=== PATIENT | male | born 1950 | race Hispanic/Latino ===

== ENCOUNTER → 2023-08-25 | Outpatient (CLI) | payer OTHER ==
[~2023-08-25] MED LIST: IRON18TA PO; LISI20TA24 PO; PANT40TA55 PO; TRAM50TA4 PO
== END | disposition home or self-care (01) ==
LOC: RAH 13:16
PROVIDERS: ATTEND Internal Medicine
DX: I08.1 Rheumatic disorders of both mitral and tricuspid valves (principal); J92.0 Pleural plaque with presence of asbestos
CPT/HCPCS: 93306

== ENCOUNTER → 2023-09-09 | Outpatient (CLI) | payer OTHER | END | disposition home or self-care (01) | LOC: RAH 13:09 | PROVIDERS: ATTEND Internal Medicine | DX: J90 Pleural effusion, not elsewhere classified (principal); J44.9 Chronic obstructive pulmonary disease, unspecified; J98.11 Atelectasis; J84.10 Pulmonary fibrosis, unspecified; K80.20 Calculus of gallbladder without cholecystitis without obstruction; M47.815 Spondylosis without myelopathy or radiculopathy, thoracolumbar region | CPT/HCPCS: 71250 ==

== ENCOUNTER → 2024-02-10 | Outpatient (CLI) | payer OTHER ==
[2024-02-10 15:19] LABS: BASOPHILS # (AUTO) 0.01 K/uL (0.00-0.20); BASOPHILS % (AUTO) 0.1 % (0.0-5.0); EOSINOPHILS # (AUTO) 0.11 K/uL (0.00-0.70); EOSINOPHILS % (AUTO) 1.1 % (0.0-8.0); IMMATURE GRANULOCYTE ABSOLUTE 0.04 K/uL (0-1); LYMPHOCYTES # (AUTO) 3.3 K/uL (1.0-4.8); MEAN CORPUSCULAR HEMOGLOBIN 22.8 pg (27.0-33.0); MEAN CORPUSCULAR VOLUME 81.5 fL (79-99); MONOCYTES # (AUTO) 2.5 K/uL (0.1-1.0); MONOCYTES % (AUTO) 25.1 % (3.0-13.0); NEUTROPHILS # (AUTO) 4.1 K/uL (1.8-7.7); NEUTROPHILS % (AUTO) 40.3 % (40.0-77.0); PLATELET COUNT (AUTO) 181 K/uL (130-400); RED BLOOD CELL COUNT(AUTO) 3.68 MIL/uL (4.50-6.20); RED CELL DISTRIBUTION WIDTH 19.3 % (11.0-15.5); WHITE BLOOD COUNT (AUTO) 10.1 K/uL (4.8-10.8)
[2024-02-10 15:37] LABS: BILIRUBIN,TOTAL 0.4 mg/dL (0.2-1.0); CREATININE 0.9 mg/dL (0.5-1.3); POTASSIUM 4.7 mmol/L (3.5-5.1); TOTAL PROTEIN, SERUM 8.9 g/dL (6.0-8.3)
[2024-02-10 15:47] LABS: % IRON SATURATION 10.3 % (30-44)
[2024-02-10 15:56] LABS: WBC MORPHOLOGY CONSISTENT W/DIFF
== END | disposition home or self-care (01) ==
LOC: LAB 14:36
PROVIDERS: ATTEND Internal Medicine Gastroenterology
DX: K44.9 Diaphragmatic hernia without obstruction or gangrene (principal); D50.9 Iron deficiency anemia, unspecified
CPT/HCPCS: 36415; 80053; 82728; 83540; 83550; 85025

== ENCOUNTER → 2024-02-15 | Outpatient (CLI) | payer OTHER ==
--- NOTE | 2024-02-15 11:35 | HMCIMG ---
UPPER GI TRACT, WO KUB REASON: DIAPHRAGMATIC HERNIA W/O OBSTRUCTION OR GANGRENE. COMPARISON: None TECHNIQUE: Biphasic upper GI series study was performed. Fluoroscopy time is 1.1 minutes. FINDINGS: There is no obstruction to the antegrade passage of barium from mouth through jejunum. A normal esophageal stripping with is seen. There is no evidence of hiatal hernia. Gastroesophageal reflux is seen to level of the mid thoracic esophagus. Stomach is well distended without ulceration or mass lesion. Duodenal bulb and duodenal sweep are unremarkable. IMPRESSION: No obstruction. Gastroesophageal reflux to the level of mid thoracic esophagus.
== END | disposition home or self-care (01) ==
LOC: RAH 09:01
PROVIDERS: ATTEND Internal Medicine Gastroenterology
DX: K21.9 Gastro-esophageal reflux disease without esophagitis (principal); K31.89 Other diseases of stomach and duodenum; K44.9 Diaphragmatic hernia without obstruction or gangrene; R93.3 Abnormal findings on diagnostic imaging of other parts of digestive tract
CPT/HCPCS: 74240

== ENCOUNTER → 2024-02-19 | Outpatient (CLI) | payer OTHER ==
[~2024-02-19] MED LIST changes: +IOHEXOL-350 75 ML VIAL IV ONE
--- NOTE | 2024-02-19 08:58 | HMCIMG ---
CT CHEST W/CONTRAST HISTORY: Diaphragmatic hernia COMPARISON: 09/09/1999 TECHNIQUE: Multiple sequential axial images of the chest were obtained from the thoracic inlet through upper abdomen. Patient was given 75 cc through intravenous route. FINDINGS: There is no evidence of pulmonary nodule or parenchymal disease. Calcified granuloma is seen in the left lower lobe.. Pacemaker is seen entering from the left. COPD changes are seen. No pleural effusion or pericardial effusion is seen. There is no evidence of pneumothorax. There are normal size mediastinal and hilar lymph nodes. The heart is not enlarged. Degenerative changes of the thoracolumbar spine are present. There is no evidence of adrenal nodule. Tiny hiatal hernia is seen. IMPRESSION: 1. No evidence of pulmonary nodule or effusion is seen. COPD. Left lower lobe calcified granuloma. This is unchanged. CT was performed with one or more following dose reduction techniques: automated exposure control, adjustment of the mA and kv according to patient's size, or use of a iterative reconstruction technique.
== END | disposition home or self-care (01) ==
LOC: RAH 07:26
PROVIDERS: ATTEND Internal Medicine Gastroenterology
DX: J84.10 Pulmonary fibrosis, unspecified (principal); K44.9 Diaphragmatic hernia without obstruction or gangrene; R93.3 Abnormal findings on diagnostic imaging of other parts of digestive tract; R63.4 Abnormal weight loss; M47.815 Spondylosis without myelopathy or radiculopathy, thoracolumbar region
CPT/HCPCS: 71260; Q9967

== ENCOUNTER → 2024-03-11 | Outpatient (CLI) | payer OTHER ==
--- NOTE | 2024-03-11 11:01 | HMCIMG ---
CT ABDOMEN W/CONTRAST HISTORY: Diaphragmatic hernia COMPARISON: None TECHNIQUE: Multiple sequential axial images of the abdomen were obtained from the dome of the diaphragm through iliac crests. Patient was not given contrast through intravenous route. Oral contrast was given. FINDINGS: No pleural effusion is seen bilaterally. There is no evidence of parenchymal disease or pulmonary nodule of the visualized lower lungs. Degenerative changes are seen of the thoracolumbar spine. Gallstone is seen in the gallbladder. Liver measures 18 cm spleen measures 16 cm. A small hiatal hernia is seen. No bowel obstruction is seen. The liver, spleen, adrenal glands and pancreas are unremarkable. There is no evidence of hydronephrosis bilaterally. No evidence of renal stone is seen. Fecal material is seen in the colon. There are normal-sized retroperitoneal and mesenteric lymph nodes. No ascites is seen. Atherosclerotic changes are present. IMPRESSION: 1. Gallstone in the gallbladder. No bowel obstruction is seen CT was performed with one or more following dose reduction techniques: automated exposure control, adjustment of the mA and kv according to patient's size, or use of a iterative reconstruction technique.
== END | disposition home or self-care (01) ==
LOC: RAH 08:22
PROVIDERS: ATTEND Internal Medicine Gastroenterology
DX: K80.20 Calculus of gallbladder without cholecystitis without obstruction (principal); K44.9 Diaphragmatic hernia without obstruction or gangrene; I70.8 Atherosclerosis of other arteries; J47.9 Bronchiectasis, uncomplicated; J84.10 Pulmonary fibrosis, unspecified; M41.84 Other forms of scoliosis, thoracic region; M47.815 Spondylosis without myelopathy or radiculopathy, thoracolumbar region
CPT/HCPCS: 74160; Q9967

== ENCOUNTER 2024-05-05 05:55 | Day surgery (SDC) | payer OTHER ==
[2024-05-05] VITALS (10 sets, daily range): BP systolic 102–119; BP diastolic 51–73; PULSE 60–67; RESP 15–17; TEMP 97.2–97.6
[~2024-05-05] VITALS: Ht 167.6 cm; Wt 81.2 kg
[~2024-05-05 05:55] MED LIST changes: -IOHEXOL-350 75 ML VIAL IV ONE
[2024-05-05] MEDS ORDERED: ASCORBIC ACID PO (06:37)
[2024-05-05] MEDS ORDERED: PRAV10TA39 PO (06:37)
[2024-05-05] MEDS ORDERED: CYAN250010 PO (06:37)
[2024-05-05] MEDS ORDERED: METF-444 PO (06:37)
[2024-05-05] MEDS ORDERED: LISI20TA24 PO (06:37)
[2024-05-05] MEDS ORDERED: IRON PO (06:37)
[2024-05-05] MEDS ORDERED: LINA290C PO (06:37)
[2024-05-05] MEDS ORDERED: OMEP40CA21 PO (06:37)
[2024-05-05] MEDS: 0.9%NACL 1000ML 1,000 ML IV ONE (06:39)
[2024-05-05] MEDS ORDERED: proPOFol 10 MG/ML 20ML VIAL IV ONE ×3 (07:11→08:23)
[2024-05-05] MEDS ORDERED: LIDOCAINE HCL 1% 20 ML VIAL ONE (07:11)
== END 2024-05-05 09:20 | disposition home or self-care (01) ==
LOC: DAH 05:55 → ENDO 05:55
PROVIDERS: ATTEND Internal Medicine Gastroenterology
DX: R93.3 Abnormal findings on diagnostic imaging of other parts of digestive tract (principal); K31.89 Other diseases of stomach and duodenum; K44.9 Diaphragmatic hernia without obstruction or gangrene; R93.5 Abnormal findings on diagnostic imaging of other abdominal regions, including retroperitoneum; R63.4 Abnormal weight loss; D50.9 Iron deficiency anemia, unspecified; K80.20 Calculus of gallbladder without cholecystitis without obstruction; K59.04 Chronic idiopathic constipation; E11.9 Type 2 diabetes mellitus without complications; D12.6 Benign neoplasm of colon, unspecified; I10 Essential (primary) hypertension; F41.9 Anxiety disorder, unspecified; F32.A Depression, unspecified; Z95.0 Presence of cardiac pacemaker; Z79.899 Other long term (current) drug therapy
CPT/HCPCS: 43259; 82948 ×2; J7030 ×2; J2704 ×2; A4620; A4215 ×2; A4223; A4222; A4221; A4663; A4606; 43235; 43237; J3490

== ENCOUNTER → 2024-06-01 | Outpatient (CLI) | payer OTHER ==
[~2024-06-01] MED LIST changes: +ASCORBIC ACID PO; +CYAN250010 PO; +DIATR MEGLU/DIATRIZOATE SODIUM 30 ML BOTTLE ONE; +IRON PO; -IRON18TA PO; +LINA290C PO; +METF-444 PO; +OMEP40CA21 PO; -PANT40TA55 PO; +PRAV10TA39 PO; -TRAM50TA4 PO
--- NOTE | 2024-06-01 10:07 | HMCIMG ---
CT ABDOMEN/PELVIS W/O CONTRAST HISTORY: Abdominal pain COMPARISON: 03/11/2024 TECHNIQUE: Multiple sequential axial images of the abdomen and pelvis were obtained from the dome of the diaphragm through symphysis pubis. Patient was not given contrast through intravenous route. Oral contrast was not given. FINDINGS: No pleural effusion is seen bilaterally. There is no evidence of parenchymal disease or pulmonary nodule of the visualized lower lungs. Degenerative changes of the thoracolumbar spine are present. The heart is not enlarged. Gallstone is seen in the distended gallbladder. Liver is enlarged with fatty changes measuring 18 cm. The liver, spleen, adrenal glands and pancreas are unremarkable. There is no evidence of hydronephrosis bilaterally. No evidence of renal stone is seen. Fecal material is seen in the colon. There are normal size retroperitoneal and mesenteric lymph nodes. No ascites is seen. Atherosclerotic changes are present. No CT evidence of acute appendicitis is seen. Ankle correlation is recommended. Pelvic sidewalls are symmetric bilaterally. Bladder is well distended without wall thickening. IMPRESSION: 1. Gallstone in the distended gallbladder. Fecal material in the colon. CT was performed with one or more following dose reduction techniques: automated exposure control, adjustment of the mA and kv according to patient's size, or use of a iterative reconstruction technique.
--- NOTE | 2024-06-01 17:16 | HMCIMG ---
SM BOWEL SERIES REASON: Iron deficiency anemia secondary to blood loss (chronic). COMPARISON: None TECHNIQUE: Small bowel series was performed. FINDINGS: There is no obstruction to the antegrade passage of barium from stomach through cecum. Large amount of fecal material is seen in the colon. The mucosal fold pattern of jejunum and ileum are unremarkable. IMPRESSION: Fecal material in the colon. No bowel obstruction. Unremarkable small bowel series.
== END | disposition home or self-care (01) ==
LOC: RAH 08:29
PROVIDERS: ATTEND Internal Medicine
DX: K80.20 Calculus of gallbladder without cholecystitis without obstruction (principal); K76.0 Fatty (change of) liver, not elsewhere classified; N32.89 Other specified disorders of bladder; M47.815 Spondylosis without myelopathy or radiculopathy, thoracolumbar region; I70.90 Unspecified atherosclerosis; M61.40 Other calcification of muscle, unspecified site; M54.50 Low back pain, unspecified; D50.0 Iron deficiency anemia secondary to blood loss (chronic)
CPT/HCPCS: 74176; 74250; Q9963